=== PATIENT | female | born 2000 | race African-American/Black ===

== ENCOUNTER 2018-01-08 15:09 | Emergency (ER) | payer SELFPAY ==
--- NOTE | 2018-01-08 18:49 | RAD ---
TWO VIEW CHEST: 01/08/18 HISTORY: Cough. Lungs are well aerated and appear clear. No infiltrate identified. heart and mediastinum appear norm al. Osseous structures normal. IMPRESSION: No evidence of acute infiltrate. POS: [facility]
== END 2018-01-08 18:16 | disposition home or self-care (01) ==
LOC: ERS 15:09
DX: R05 Cough (principal)
CPT/HCPCS: 71046